=== PATIENT | male | born 1995 | race Caucasian/White ===

== ENCOUNTER 2024-09-14 08:10 | Day surgery (SDC) | payer SELFPAY ==
[~2024-09-14] VITALS: Ht 180.3 cm; Wt 93.7 kg
[2024-09-14] MEDS ORDERED: GLYCOPYRROLATE INJ 0.2 MG/ML 2 ML VIAL As Ordered ONE (08:15)
[2024-09-14] MEDS ORDERED: propofoL 200 MG/20 ML VIAL As Ordered ONE (08:15)
[2024-09-14] MEDS ORDERED: LIDOCAINE 2% 100MG/5ML SDV (FOR ANES.) As Ordered ONE (08:15)
[2024-09-14] MEDS ORDERED: ONDANSETRON 4MG 2ML VIAL As Ordered ONE (08:16)
[2024-09-14] MEDS ORDERED: MIDAZOLAM INJ 2MG/2ML VIAL As Ordered ONE (08:17)
[2024-09-14] MEDS ORDERED: fentaNYL 100 MCG/2 ML INJECTION As Ordered ONE (08:18)
[2024-09-14] MEDS: LR 1,000 ML IV SCH (09:00)
[2024-09-14] MEDS: ceFAZolin SOD 2 GM in IV 1 EA IV ONE (09:36)
[2024-09-14] MEDS: BACITRACIN OINTMENT 30GM TUBE As Ordered ONE (12:00)
[2024-09-14] MEDS ORDERED: PERCOCET PO ×2 (12:21→12:24)
[2024-09-14] MEDS: oxyCODONE 5MG TAB PO PRN (12:44)
[2024-09-14] MEDS: ONDANSETRON 4MG 2ML VIAL IV PRN (12:44)
[2024-09-14] MEDS: fentaNYL 100 MCG/2 ML INJECTION IV PRN (12:45)
[2024-09-14] MEDS: KETOROLAC 30 MG/ML 1ML VIAL IV ONE (13:30)
[2024-09-14] MEDS: ACETAMINOPHEN *IV* 1,000 MG in IV 1 EA IV ONE (13:32)
[2024-09-14 13:50] VITALS: BP 137/81; TEMP 98.1; O2SAT 95
== END 2024-09-14 14:10 | disposition home or self-care (01) ==
LOC: M SDC 08:10
PROVIDERS: ATTEND Orthopaedic Surgery Hand Surgery
DX: S61.214A Laceration without foreign body of right ring finger without damage to nail, initial encounter (principal); S61.210A Laceration without foreign body of right index finger without damage to nail, initial encounter; M41.9 Scoliosis, unspecified
CPT/HCPCS: 26418; J0131; J0665; J0690; J1100; J1596; J1885; J2250; J2405; J3010

== ENCOUNTER 2024-09-19 08:30 | Day surgery (SDC) | payer SELFPAY ==
[~2024-09-19] VITALS: Ht 182.9 cm; Wt 94.5 kg
[~2024-09-19 08:30] MED LIST: GLYCOPYRROLATE INJ 0.2 MG/ML 2 ML VIAL As Ordered ONE; KETOROLAC 60MG 2ML VIAL As Ordered ONE; LIDOCAINE 2% 100MG/5ML SDV (FOR ANES.) As Ordered ONE; MIDAZOLAM INJ 2MG/2ML VIAL As Ordered ONE; ONDANSETRON 4MG 2ML VIAL As Ordered ONE; PERCOCET PO; fentaNYL 100 MCG/2 ML INJECTION As Ordered ONE; propofoL 200 MG/20 ML VIAL As Ordered ONE
[2024-09-19] MEDS ORDERED: ETOMIDATE INJ 20MG/10ML VIAL As Ordered ONE (08:56)
[2024-09-19] MEDS ORDERED: ROCURONIUM BROMIDE 50MG/5ML VIAL As Ordered ONE (08:58)
[2024-09-19] MEDS ORDERED: LR 1,000 ML IV SCH (09:00)
[2024-09-19] MEDS: ceFAZolin 2 GM/D5W 50 ML IV BAG As Ordered ONE (10:40)
[2024-09-19] MEDS ORDERED: ACETAMINOPHEN 1000MG/100ML IV BAG As Ordered ONE (10:49)
[2024-09-19] MEDS: BACITRACIN OINTMENT 30GM TUBE As Ordered ONE (12:25)
[2024-09-19] MEDS ORDERED: ONDANSETRON 4MG 2ML VIAL IV PRN (12:35)
[2024-09-19] MEDS ORDERED: fentaNYL 100 MCG/2 ML INJECTION IV PRN (12:35)
[2024-09-19] MEDS ORDERED: CEFA500C2 PO (12:50)
[2024-09-19] MEDS: oxyCODONE 5MG TAB PO PRN (13:16)
[2024-09-19 13:30] VITALS: BP 127/72; TEMP 97.6; O2SAT 98
== END 2024-09-19 14:20 | disposition home or self-care (01) ==
LOC: M SDC 08:30
PROVIDERS: ATTEND Orthopaedic Surgery Hand Surgery
DX: S56.123A Laceration of flexor muscle, fascia and tendon of right middle finger at forearm level, initial encounter (principal); X58.XXXA Exposure to other specified factors, initial encounter; Y93.9 Activity, unspecified; M41.9 Scoliosis, unspecified
CPT/HCPCS: 26356; J0131; J0665; J0690; J1100; J1596; J1885; J2250; J2405; J3010